=== PATIENT | male | born 1955 | race Two or more races ===

== ENCOUNTER 2025-03-07 15:06 | Inpatient (IN) | payer MEDICARE, OTHER ==
[~2025-03-07] VITALS: Ht 177.8 cm; Wt 80.3 kg
[~2025-03-07 15:06] MED LIST: FERR325T24 PO
[2025-03-07 16:08] LABS: PLATELET COUNT (AUTO) 201 K/uL (150-450); RED BLOOD CELL COUNT(AUTO) 4.19 MIL/uL (4.5-6.0); RED CELL DISTRIBUTION WIDTH 15.7 % (11.5-15.0); WHITE BLOOD COUNT (AUTO) 5.7 K/uL (4.3-11.0)
[2025-03-07 16:15] LABS: CALCIUM, SERUM 8.6 mg/dL (8.5-10.1); CREATININE 0.8 mg/dL (0.6-1.3); SODIUM SERUM 140 mmol/L (136-145); UREA NITROGEN, BLOOD 25 mg/dL (7-18)
[2025-03-07 16:18] LABS: INR 0.99 (0.91-1.10)
[2025-03-07] MEDS: IV NS 0.9% 250 ML BAG IV ONE (17:00)
[2025-03-07] MEDS ORDERED: TEMAZEPAM 15 MG CAPSULE PO PRN (20:00)
[2025-03-07] MEDS ORDERED: HYDROCODONE/APAP 5/325MG TABLET PO PRN (20:00)
[2025-03-07] MEDS ORDERED: MAG HYDROX/AL HYDROX/SIMETH 30 ML UDC PO PRN (20:00)
[2025-03-07] MEDS ORDERED: ACETAMINOPHEN 325 MG TABLET PO PRN (20:00)
[2025-03-07] MEDS ORDERED: MAGNESIUM HYDROXIDE 30 ML UDC PO PRN (20:00)
[2025-03-07] MEDS ORDERED: ONDANSETRON HCL/PF 4 MG/2 ML VIAL IVP PRN (20:00)
[2025-03-07] MEDS ORDERED: Z GUARD REMEDY 4 OZ OINT TP PRN (20:00)
[2025-03-07 23:35] VITALS: BP 141/64; TEMP 97.3; O2SAT 98
[2025-03-08 04:00] VITALS: BP 162/78; TEMP 97.5; O2SAT 99
[2025-03-08 07:00] VITALS: BP 155/81; TEMP 97.5; O2SAT 99
[2025-03-08 07:29] LABS: PLATELET COUNT (AUTO) 195 K/uL (150-450); RED BLOOD CELL COUNT(AUTO) 4.21 MIL/uL (4.5-6.0); RED CELL DISTRIBUTION WIDTH 15.4 % (11.5-15.0); WHITE BLOOD COUNT (AUTO) 5.4 K/uL (4.3-11.0)
[2025-03-08 07:39] LABS: CALCIUM, SERUM 8.5 mg/dL (8.5-10.1); CREATININE 0.7 mg/dL (0.6-1.3); PHOSPHORUS 3.2 mg/dL (2.5-4.9); SODIUM SERUM 145.0 mmol/L (136-145); UREA NITROGEN, BLOOD 20.0 mg/dL (7-18)
[2025-03-08 07:56] LABS: LDL 49.0 mg/dL (0-99)
[2025-03-08] MEDS: PANTOPRAZOLE 40 MG TABLET.DR PO SCH (08:37)
[2025-03-08] MEDS ORDERED: MELA3TAB41 PO (12:02)
[2025-03-08] MEDS ORDERED: BETH10TA4 PO (12:02)
[2025-03-08] MEDS ORDERED: TAMS-12 PO (12:02)
[2025-03-08] MEDS ORDERED: CARB1TAB31 PO (12:02)
[2025-03-08] MEDS ORDERED: POLY17PO4 PO (12:02)
[2025-03-08] MEDS ORDERED: METO50TA16 PO (12:02)
[2025-03-08] MEDS ORDERED: FINA5TAB11 PO (12:02)
[2025-03-08] MEDS ORDERED: DOXA1TAB2 PO (12:02)
[2025-03-08] MEDS ORDERED: OLAN15TA3 PO (12:02)
[2025-03-08] MEDS ORDERED: SENN-261 PO (12:02)
[2025-03-08] MEDS ORDERED: QUET400T PO (12:02)
[2025-03-08] MEDS ORDERED: DULO30CA52 PO (12:02)
[2025-03-08] MEDS ORDERED: MAGN400O6 PO (12:02)
[2025-03-08] MEDS ORDERED: ASPI-1420 PO (12:02)
[2025-03-08] MEDS ORDERED: VALP250C3 PO (12:02)
[2025-03-08] MEDS ORDERED: TRAZ-257 PO (12:02)
[2025-03-08] MEDS ORDERED: PANT40TA49 PO (12:02)
[2025-03-08] MEDS ORDERED: LORA-259 PO (12:02)
[2025-03-08] MEDS ORDERED: CHOL100045 PO (12:02)
[2025-03-08] MEDS ORDERED: ATOR20TA PO (12:02)
[2025-03-08] MEDS ORDERED: CALC500T53 PO (12:02)
[2025-03-08] MEDS ORDERED: DIVA125C5 PO (12:02)
[2025-03-08] MEDS ORDERED: IPRA3AMP23 IH (12:02)
[2025-03-08 16:00] VITALS: BP_SYST 108; BP_SYST 117; BP_DIAS 101; BP_DIAS 90; TEMP 97.5; TEMP 97.7; O2SAT 96; O2SAT 98
[2025-03-08 18:10] LABS: AMPHETAMINE, URINE NEGATIVE (NEGATIVE); BARBITURATE, URINE NEGATIVE (NEGATIVE); BENZODIAZEPINE, URINE NEGATIVE (NEGATIVE); CANNABINOID, URINE NEGATIVE (NEGATIVE); COCCAINE, URINE NEGATIVE (NEGATIVE); OPIATE, URINE NEGATIVE (NEGATIVE)
[2025-03-08 18:32] LABS: APPEARANCE,URINE CLEAR (CLEAR); BLOOD, URINE NEGATIVE Ery/uL (NEGATIVE); LEUKOCYTE ESTERASE ,URINE NEGATIVE (NEGATIVE); NITRITE, URINE NEGATIVE (NEGATIVE); UGLUCOSE NEGATIVE (NEGATIVE)
[2025-03-08 20:00] VITALS: BP 115/77; TEMP 98.4; O2SAT 95
[2025-03-09 07:32] LABS: PLATELET COUNT (AUTO) 225 K/uL (150-450); RED BLOOD CELL COUNT(AUTO) 4.49 MIL/uL (4.5-6.0); RED CELL DISTRIBUTION WIDTH 15.9 % (11.5-15.0); WHITE BLOOD COUNT (AUTO) 7.3 K/uL (4.3-11.0)
[2025-03-09 08:00] VITALS: BP 132/88; TEMP 98.2; O2SAT 95
[2025-03-09 08:05] LABS: CALCIUM, SERUM 8.8 mg/dL (8.5-10.1); CREATININE 0.9 mg/dL (0.6-1.3); PHOSPHORUS 2.9 mg/dL (2.5-4.9); SODIUM SERUM 145.0 mmol/L (136-145); UREA NITROGEN, BLOOD 20.0 mg/dL (7-18)
[2025-03-09 16:00] VITALS: BP 130/86; TEMP 98.1; O2SAT 97
[2025-03-09 20:00] VITALS: BP 128/81; TEMP 97.7; O2SAT 96
[2025-03-10 04:41] VITALS: BP 162/80; TEMP 97.1; O2SAT 98
[2025-03-10 08:46] VITALS: BP 125/62; TEMP 98; O2SAT 96
[2025-03-10] MEDS ORDERED: PANTOPRAZOLE 40 MG TABLET.DR PO SCH (09:00)
[2025-03-10] MEDS ORDERED: VALPROIC ACID 250 MG/5 ML UDC PO SCH (09:00)
[2025-03-10] MEDS: FERROUS SULFATE (325 MG) 325 MG/TAB TABLET PO SCH (09:29)
[2025-03-10] MEDS: CHOLECALCIFEROL 1,000 UNIT TABLET (VIT D3) PO SCH (09:29)
[2025-03-10] MEDS: DIVALPROEX SODIUM 125 MG CAP.SPRINK PO SCH (09:30)
[2025-03-10] MEDS: FINASTERIDE (5 MG) 5 MG TABLET PO SCH (09:31)
[2025-03-10] MEDS: TAMSULOSIN 0.4 MG CAP.SR.24H PO SCH (09:31)
[2025-03-10] MEDS: CALCIUM CARBONATE (1250) 500 MG TABLET PO SCH (09:31)
[2025-03-10] MEDS: OLANZAPINE 10 MG TABLET PO SCH (09:31)
[2025-03-10] MEDS: BETHANECHOL CHLORIDE (10 MG) 10 MG TABLET PO SCH (09:31)
[2025-03-10] MEDS: DOXAZOSIN MESYLATE (1 MG) 1 MG TABLET PO SCH (09:32)
[2025-03-10] MEDS: METOPROLOL TARTRATE 50 MG TABLET PO SCH (09:32)
[2025-03-10] MEDS: ASPIRIN EC 81 MG TABLET.DR PO SCH (09:33)
[2025-03-10] MEDS: DULOXETINE HCL 30 MG CAPSULE.DR PO SCH (09:33)
[2025-03-10] MEDS: CARBIDOPA/LEVODOPA 10/100 MG 1 UDTAB PO SCH (09:35)
[2025-03-10 16:41] VITALS: BP 108/56; TEMP 97.9; O2SAT 97
[2025-03-10] MEDS ORDERED: SENNOSIDES 8.6 MG TABLET PO SCH (22:00)
[2025-03-10] MEDS ORDERED: QUETIAPINE FUMARATE 100 MG TABLET PO SCH (22:00)
[2025-03-10] MEDS ORDERED: ATORVASTATIN 10 MG TABLET PO SCH (22:00)
[2025-03-10] MEDS ORDERED: TRAZODONE 50 MG TABLET PO SCH (22:00)
== END 2025-03-10 18:27 | DRG 682 ==
LOC: EDSEX 15:10 → ER 15:10 → MED 21:17
PROVIDERS: ADMIT Nurse Practitioner Acute Care; ATTEND Nurse Practitioner Acute Care
DX: N17.9 Acute kidney failure, unspecified (principal); G93.41 Metabolic encephalopathy; D68.59 Other primary thrombophilia; F02.83 Dementia in other diseases classified elsewhere, unspecified severity, with mood disturbance; F02.84 Dementia in other diseases classified elsewhere, unspecified severity, with anxiety; N13.8 Other obstructive and reflux uropathy; R62.7 Adult failure to thrive; Z20.822 Contact with and (suspected) exposure to COVID-19; E78.5 Hyperlipidemia, unspecified; G20.A1 Parkinson's disease without dyskinesia, without mention of fluctuations; F32.9 Major depressive disorder, single episode, unspecified; I10 Essential (primary) hypertension; Z74.09 Other reduced mobility; N40.1 Benign prostatic hyperplasia with lower urinary tract symptoms; R60.9 Edema, unspecified; Z79.51 Long term (current) use of inhaled steroids; Z79.82 Long term (current) use of aspirin; Z79.899 Other long term (current) drug therapy
CPT/HCPCS: 36415; 70450-TC; 71045-TC; 80048-TC; 80061-TC; 83735-TC; 84100-TC; 84443-TC; 84484-TC; 85025-TC; 85730-TC; 87081-TC; 92526; 92611; 93970-TC; 97112-TC; 97116-TC; 97530-TC; 97535-TC; G0378; J7040